=== PATIENT | female | born 1950 | race Hispanic/Latino ===

== ENCOUNTER → 2018-07-01 | Outpatient (CLI) | payer OTHER | END | disposition home or self-care (01) | LOC: RAH 08:10 | PROVIDERS: ATTEND Internal Medicine Gastroenterology | DX: K21.9 Gastro-esophageal reflux disease without esophagitis (principal); R13.10 Dysphagia, unspecified; Z90.49 Acquired absence of other specified parts of digestive tract | CPT/HCPCS: 74240 ==

== ENCOUNTER 2018-08-30 05:43 | Day surgery (SDC) | payer OTHER ==
[~2018-08-30] VITALS: Ht 162.6 cm; Wt 135.6 kg
[2018-08-30 07:10] VITALS: BP 145/85
[2018-08-30] MEDS ORDERED: SODIUM CHLORIDE 0.9% 1000ML 1,000 ML IV ONE (07:27)
[2018-08-30 08:49] VITALS: BP 118/55
[2018-08-30 08:55] VITALS: BP 124/61
[2018-08-30 09:00] VITALS: BP 114/70
[2018-08-30 09:05] VITALS: BP 119/64
--- NOTE | 2018-08-30 09:35 | NUR ---
PT TOLERATED PROCEDURE WELL, NO C/O THROAT PAIN, ABLE TO TOLERATE FLUIDS IN GI RECOVERY. POST CARE INSTRUCTIONS GIVEN TO PT AND FAMILY FRIEND, BOTH VERBALIZED UNDERSTANDING. PT DRESSED WITH HELP FROM FRIEND, PT PLACED IN A WHEELCHAIR DRIVEN HOME BY FRIEND.
== END 2018-08-30 09:35 | disposition home or self-care (01) ==
LOC: DAH 05:43 → ENDO 05:43
PROVIDERS: ATTEND Internal Medicine Gastroenterology
DX: K29.50 Unspecified chronic gastritis without bleeding (principal); Z98.84 Bariatric surgery status; Z98.890 Other specified postprocedural states; M81.0 Age-related osteoporosis without current pathological fracture; E78.5 Hyperlipidemia, unspecified; I10 Essential (primary) hypertension; G25.81 Restless legs syndrome; F32.9 Major depressive disorder, single episode, unspecified; K21.9 Gastro-esophageal reflux disease without esophagitis; Z86.010 Personal history of colon polyps; G62.9 Polyneuropathy, unspecified; Z79.899 Other long term (current) drug therapy; Z68.42 Body mass index [BMI] 45.0-49.9, adult; Z80.0 Family history of malignant neoplasm of digestive organs
CPT/HCPCS: 43239; 43249; 88305; 93005; A4606; J7030; 43251

== ENCOUNTER 2018-11-28 20:23 | Inpatient (IN) | payer OTHER ==
[~2018-11-28] VITALS: Ht 170.2 cm; Wt 135.3 kg
[2018-11-28 21:59] LABS: BASOPHILS % (AUTO) 0.3 % (0.0-5.0); HEMATOCRIT 38.1 % (36-48); LYMPHOCYTES % (AUTO) 6.4 % (21.0-51.0); MEAN CORPUSCULAR HEMOGLOBIN 27.6 pg (27.0-33.0); MEAN CORPUSCULAR HGB CONC 32.6 g/dL (32.0-36.0); MEAN CORPUSCULAR VOLUME 84.7 fL (79-99); MONOCYTES % (AUTO) 6.3 % (3.0-13.0); PLATELET COUNT (AUTO) 236 K/uL (130-400); RED CELL DISTRIBUTION WIDTH 14.4 % (11.0-15.5); WHITE BLOOD COUNT (AUTO) 19.2 K/uL (4.8-10.8)
[2018-11-28 22:19] LABS: CREATININE 1.6 mg/dL (0.5-1.5); POTASSIUM 3.8 mmol/L (3.5-5.1)
[2018-11-28] MEDS ORDERED: CLINDAMYCIN HCL 150 MG CAP ONE (22:51)
[2018-11-28] MEDS ORDERED: MEROPENEM 500 MG VIAL ONE (23:04)
[2018-11-29] MEDS ORDERED: MORPHINE SULFATE 4 MG/1ML SYG IV PRN (00:45)
[2018-11-29] MEDS ORDERED: ONDANSETRON HCL 4 MG/2 ML VIAL IV PRN (00:45)
[2018-11-29 00:50] VITALS: BP 149/67
[2018-11-29] MEDS: CLINDAMYCIN 600 MG/D5% WATER 50 ML IV SCH ×3 (01:00→17:49)
--- NOTE | 2018-11-29 01:15 | NUR ---
CT Angio Informed ELVIN Rausch Np who is front desk team member for the hospitalist regarding CT angio can not be done because of patient elevated Bun and Creatine. He said he will recheck labs in am and hydrate patient with NS at 100.
[2018-11-29] MEDS: SODIUM CHLORIDE 0.9% 1000ML 1,000 ML IV SCH ×3 (01:26→20:12)
[2018-11-29] MEDS ORDERED: DULO60CA63 PO (01:43)
[2018-11-29] MEDS ORDERED: LOSA1TAB2 PO (01:43)
[2018-11-29] MEDS ORDERED: DILT360C32 PO (01:43)
[2018-11-29] MEDS ORDERED: APIX5TAB PO (01:43)
[2018-11-29] MEDS ORDERED: LATA7.5D OP (01:43)
[2018-11-29] MEDS ORDERED: CHOL500011 PO (01:43)
[2018-11-29] MEDS ORDERED: GLUC-145 PO (01:43)
[2018-11-29] MEDS ORDERED: SIMV40TA59 PO (01:43)
[2018-11-29] MEDS ORDERED: LEVO200 PO (01:43)
[2018-11-29] MEDS ORDERED: OMEP40CA37 PO (01:43)
[2018-11-29] MEDS ORDERED: FESO8TAB PO (01:43)
--- NOTE | 2018-11-29 03:01 | NUR ---
Lactic Acid Inform ELVIN Rausch regarding patients Lactic Acid of 2.9. No orders were given
[2018-11-29 03:37] VITALS: BP 126/54
[2018-11-29] MEDS ORDERED: KETOROLAC TROMETHAMINE 15MG/ML IV PRN (04:00)
[2018-11-29] MEDS: LEVOTHYROXINE 75 MCG TABLET PO SCH (06:26)
[2018-11-29] MEDS: LEVOTHYROXINE 100 MCG TABLET PO SCH (06:26)
[2018-11-29 06:47] LABS: ALBUMIN 2.9 g/dL (3.5-5.0); BILIRUBIN,TOTAL 0.6 mg/dL (0.2-1.0); CREATININE 1.4 mg/dL (0.5-1.5); POTASSIUM 3.9 mmol/L (3.5-5.1); TOTAL PROTEIN, SERUM 7.2 g/dL (6.0-8.3)
[2018-11-29 07:30] VITALS: BP 136/70
[2018-11-29] MEDS ORDERED: ENOXAPARIN SODIUM 40 MG/0.4 ML SYRINGE SQ SCH (09:00)
[2018-11-29] MEDS: DILTIAZEM HCL 180 MG CAP.SR.24H PO SCH (09:25)
[2018-11-29] MEDS: APIXABAN 5 MG TABLET PO SCH ×2 (09:26→20:09)
[2018-11-29] MEDS: LOSARTAN 50 MG TABLET PO SCH (09:26)
[2018-11-29] MEDS: HYDROCHLOROTHIAZIDE 25 MG TABLET PO SCH (09:26)
[2018-11-29] MEDS: DULOXETINE HCL 30 MG CAP PO SCH ×2 (09:26→20:09)
[2018-11-29] MEDS: FAMOTIDINE 20MG TAB 20 MG TAB PO SCH (09:27)
[2018-11-29] MEDS: FESOTERODINE FUMARATE 8 MG PO SCH (09:28)
[2018-11-29 11:00] VITALS: BP 118/74
[2018-11-29] MEDS ORDERED: IOHEXOL-350 75 ML VIAL IV ONE (13:27)
[2018-11-29 16:00] VITALS: BP 128/66
[2018-11-29] MEDS: GLUCOSAMINE-CHONDROITIN PO SCH (17:50)
[2018-11-29 19:00] VITALS: BP 111/66
--- NOTE | 2018-11-29 19:37 | NUR ---
cm note lives alone.independent with adls Walker at times. Drives self. Dc plan is back home. provided [facility] info referral to [facility] provider assists. Addendum: 11/29/18 at 1938 by TATIANNA KERR CM Amended: Links added.
[2018-11-29] MEDS: SIMVASTATIN 20 MG TABLET PO SCH (20:09)
[2018-11-29] MEDS: LATANOPROST 2.5 ML DROPS OP SCH (20:15)
[2018-11-30 00:15] VITALS: BP 118/64
[2018-11-30] MEDS: CLINDAMYCIN 600 MG/D5% WATER 50 ML IV SCH ×3 (01:22→16:39)
[2018-11-30 04:12] VITALS: BP 123/56
[2018-11-30 05:22] LABS: BASOPHILS % (AUTO) 0.3 % (0.0-5.0); EOSINOPHILS % (AUTO) 1.8 % (0.0-8.0); HEMATOCRIT 33.9 % (36-48); LYMPHOCYTES % (AUTO) 13.6 % (21.0-51.0); MEAN CORPUSCULAR HEMOGLOBIN 27.8 pg (27.0-33.0); MEAN CORPUSCULAR VOLUME 84.1 fL (79-99); MONOCYTES % (AUTO) 6.4 % (3.0-13.0); NEUTROPHILS % (AUTO) 77.9 % (40.0-77.0); PLATELET COUNT (AUTO) 201 K/uL (130-400); RED BLOOD CELL COUNT(AUTO) 4.03 MIL/uL (4.00-5.50); WHITE BLOOD COUNT (AUTO) 10.5 K/uL (4.8-10.8)
[2018-11-30 05:41] LABS: CREATININE 1.1 mg/dL (0.5-1.5); POTASSIUM 3.8 mmol/L (3.5-5.1)
[2018-11-30] MEDS: LEVOTHYROXINE 100 MCG TABLET PO SCH (05:47)
[2018-11-30] MEDS: LEVOTHYROXINE 75 MCG TABLET PO SCH (05:47)
[2018-11-30] MEDS: SODIUM CHLORIDE 0.9% 1000ML 1,000 ML IV SCH ×2 (05:51→20:12)
[2018-11-30 08:00] VITALS: BP 131/61
[2018-11-30] MEDS: LOSARTAN 50 MG TABLET PO SCH (08:40)
[2018-11-30] MEDS: HYDROCHLOROTHIAZIDE 25 MG TABLET PO SCH (08:41)
[2018-11-30] MEDS: DULOXETINE HCL 30 MG CAP PO SCH ×2 (08:41→20:08)
[2018-11-30] MEDS: FAMOTIDINE 20MG TAB 20 MG TAB PO SCH (08:41)
[2018-11-30] MEDS: APIXABAN 5 MG TABLET PO SCH ×2 (08:41→20:08)
[2018-11-30] MEDS: DILTIAZEM HCL 180 MG CAP.SR.24H PO SCH (08:41)
[2018-11-30] MEDS: FESOTERODINE FUMARATE 8 MG PO SCH (08:42)
[2018-11-30] MEDS ORDERED: ERGOCALCIFEROL (VITAMIN D2) 50,000 UNIT CAPSULE PO SCH (09:00)
[2018-11-30 11:52] VITALS: BP 114/57
[2018-11-30 16:00] VITALS: BP 122/84
[2018-11-30] MEDS: GLUCOSAMINE-CHONDROITIN PO SCH (16:39)
[2018-11-30] MEDS ORDERED: ACETAMINOPHEN 325 MG TAB PO PRN (18:00)
[2018-11-30 19:12] VITALS: BP 122/56
--- NOTE | 2018-11-30 20:00 | NUR ---
MEDS SHIFT ASSESSMENT DONE, PLEASE REFER TO CHART.PT COMPLAINTS OF PAINS TO LLE GOING UP ABOVE HER KNEES. DUE MEDS ADMINISTERED AND TORADOL FOR PAINS GIVEN, PT TOLERATED MEDS WELL. KEPT RESTED AND COMFROTABLE IN BED. CALL LIGHT WITHIN REACH. WILL RE-ASSESS PT. Addendum: 11/30/18 at 2244 by JOSEMANUEL LOWE RN RN Amended: Links added.
[2018-11-30] MEDS: SIMVASTATIN 20 MG TABLET PO SCH (20:08)
[2018-11-30] MEDS: LATANOPROST 2.5 ML DROPS OP SCH (21:47)
[2018-12-01 00:05] VITALS: BP 111/71
[2018-12-01] MEDS: CLINDAMYCIN 600 MG/D5% WATER 50 ML IV SCH ×3 (00:41→16:55)
--- NOTE | 2018-12-01 01:56 | NUR ---
ROUNDS PT FAIRLY ASLEEP WITH RESPIRATIONS EVEN AND UNLABORED. NO NOTED DISTRESS. KEPT UNDISTURBED FOR NOW. WILL CONTINUE TO MONITOR.
[2018-12-01] MEDS: SODIUM CHLORIDE 0.9% 1000ML 1,000 ML IV SCH ×3 (02:00→22:45)
--- NOTE | 2018-12-01 04:00 | NUR ---
SHOWER PT IS ALREADY AWAKE AND REQUESTING A SHOWER. SALINE LOCKED FOR NOW. PCP IN TO ASSIST PT.
[2018-12-01 04:08] VITALS: BP 120/68
[2018-12-01] MEDS: LEVOTHYROXINE 75 MCG TABLET PO SCH (05:49)
[2018-12-01] MEDS: LEVOTHYROXINE 100 MCG TABLET PO SCH (05:50)
--- NOTE | 2018-12-01 05:50 | NUR ---
MEDS PT AWAKENED FOR DUE MEDS, TOLERATED WELL. JOB DEVELOPMENT SPECIALIST IN TO DRAW BLOOD. KEPT RESTED IN BED. ENCOURAGED TO GO BACK TO SLEEP. FOR MORE CARE.
[2018-12-01 06:31] LABS: CREATININE 1.2 mg/dL (0.5-1.5); POTASSIUM 3.7 mmol/L (3.5-5.1)
[2018-12-01 08:00] VITALS: BP 105/65
--- NOTE | 2018-12-01 08:00 | NUR ---
AM SHIFT ASSESSMENT. WHEEZES BILATERAL. STATES HAS BEEN SOMEWHAT SOB. WILL CALL TO NOTIFY
[2018-12-01] MEDS: LOSARTAN 50 MG TABLET PO SCH (08:24)
[2018-12-01] MEDS: HYDROCHLOROTHIAZIDE 25 MG TABLET PO SCH (08:24)
[2018-12-01] MEDS: DILTIAZEM HCL 180 MG CAP.SR.24H PO SCH (08:25)
[2018-12-01] MEDS: FAMOTIDINE 20MG TAB 20 MG TAB PO SCH (08:25)
[2018-12-01] MEDS: DULOXETINE HCL 30 MG CAP PO SCH ×2 (08:25→20:59)
[2018-12-01] MEDS: APIXABAN 5 MG TABLET PO SCH ×2 (08:26→20:59)
[2018-12-01] MEDS: FESOTERODINE FUMARATE 8 MG PO SCH (08:28)
[2018-12-01 11:48] VITALS: BP 131/65
[2018-12-01 16:00] VITALS: BP 108/54
[2018-12-01] MEDS: GLUCOSAMINE-CHONDROITIN PO SCH (16:55)
--- NOTE | 2018-12-01 17:00 | NUR ---
DR. BENNETT ADDRESSED C/O OF WHEEZING.
[2018-12-01 19:12] VITALS: BP 131/55
[2018-12-01] MEDS: SIMVASTATIN 20 MG TABLET PO SCH (20:59)
[2018-12-01] MEDS: LATANOPROST 2.5 ML DROPS OP SCH (21:00)
[2018-12-01] MEDS: IPRATROPIUM 0.5 MG/2.5 ML INH IH SCH (21:56)
[2018-12-02] VITALS (7 sets, daily range): BP systolic 128–148; BP diastolic 60–79
[2018-12-02] MEDS: CLINDAMYCIN 600 MG/D5% WATER 50 ML IV SCH ×3 (01:40→17:12)
[2018-12-02] MEDS: IPRATROPIUM 0.5 MG/2.5 ML INH IH SCH ×6 (01:42→21:15)
--- NOTE | 2018-12-02 05:12 | NUR ---
STATUS Pt had an uneventful night.Voiced no complaints of pain or discomfort.
[2018-12-02] MEDS: LEVOTHYROXINE 100 MCG TABLET PO SCH (06:09)
[2018-12-02] MEDS: LEVOTHYROXINE 75 MCG TABLET PO SCH (06:09)
[2018-12-02] MEDS: FESOTERODINE FUMARATE 8 MG PO SCH (09:00)
[2018-12-02] MEDS ORDERED: FUROSEMIDE 10 MG/ML 2ML VIAL IV SCH (09:00)
[2018-12-02] MEDS: DILTIAZEM HCL 180 MG CAP.SR.24H PO SCH (10:29)
[2018-12-02] MEDS: HYDROCHLOROTHIAZIDE 25 MG TABLET PO SCH (10:29)
[2018-12-02] MEDS: DULOXETINE HCL 30 MG CAP PO SCH ×2 (10:30→20:30)
[2018-12-02] MEDS: LOSARTAN 50 MG TABLET PO SCH (10:30)
[2018-12-02] MEDS: APIXABAN 5 MG TABLET PO SCH ×2 (10:30→20:30)
[2018-12-02] MEDS: FAMOTIDINE 20MG TAB 20 MG TAB PO SCH (10:30)
[2018-12-02] MEDS: GLUCOSAMINE-CHONDROITIN PO SCH (17:12)
[2018-12-02] MEDS: SIMVASTATIN 20 MG TABLET PO SCH (20:30)
[2018-12-02] MEDS: LATANOPROST 2.5 ML DROPS OP SCH (20:31)
--- NOTE | 2018-12-02 21:00 | NUR ---
PIV New Iv site started to her left foreamr per Scott Arguello Rn.
[2018-12-03] MEDS: IPRATROPIUM 0.5 MG/2.5 ML INH IH SCH ×4 (01:08→13:36)
[2018-12-03] MEDS: CLINDAMYCIN 600 MG/D5% WATER 50 ML IV SCH ×2 (01:48→08:52)
[2018-12-03 03:00] VITALS: BP 132/63
--- NOTE | 2018-12-03 04:51 | NUR ---
STATUS Pt slept well,voiced no complaints of pain or discomfort.
[2018-12-03 05:23] LABS: BASOPHILS % (AUTO) 0.6 % (0.0-5.0); EOSINOPHILS % (AUTO) 4.3 % (0.0-8.0); HEMATOCRIT 32.2 % (36-48); LYMPHOCYTES % (AUTO) 15.9 % (21.0-51.0); MEAN CORPUSCULAR HEMOGLOBIN 26.8 pg (27.0-33.0); MEAN CORPUSCULAR HGB CONC 32.3 g/dL (32.0-36.0); MEAN CORPUSCULAR VOLUME 83.1 fL (79-99); MONOCYTES % (AUTO) 9.9 % (3.0-13.0); NEUTROPHILS % (AUTO) 69.3 % (40.0-77.0); PLATELET COUNT (AUTO) 340 K/uL (130-400); RED BLOOD CELL COUNT(AUTO) 3.88 MIL/uL (4.00-5.50); RED CELL DISTRIBUTION WIDTH 14.4 % (11.0-15.5); WHITE BLOOD COUNT (AUTO) 8.1 K/uL (4.8-10.8)
[2018-12-03 05:32] LABS: CREATININE 1.1 mg/dL (0.5-1.5); POTASSIUM 4.4 mmol/L (3.5-5.1)
[2018-12-03] MEDS: LEVOTHYROXINE 100 MCG TABLET PO SCH (06:25)
[2018-12-03] MEDS: LEVOTHYROXINE 75 MCG TABLET PO SCH (06:25)
[2018-12-03 08:00] VITALS: BP 127/71
[2018-12-03] MEDS: DULOXETINE HCL 30 MG CAP PO SCH (08:44)
[2018-12-03] MEDS: APIXABAN 5 MG TABLET PO SCH (08:44)
[2018-12-03] MEDS: HYDROCHLOROTHIAZIDE 25 MG TABLET PO SCH (08:45)
[2018-12-03] MEDS: LOSARTAN 50 MG TABLET PO SCH (08:45)
[2018-12-03] MEDS: FAMOTIDINE 20MG TAB 20 MG TAB PO SCH (08:45)
[2018-12-03] MEDS: FESOTERODINE FUMARATE 8 MG PO SCH (08:46)
[2018-12-03] MEDS: DILTIAZEM HCL 180 MG CAP.SR.24H PO SCH (08:46)
[2018-12-03] MEDS ORDERED: CLIN300C9 PO (08:48)
[2018-12-03 12:00] VITALS: BP 134/87
--- NOTE | 2018-12-03 15:00 | NUR ---
DISCHARGE INSTRUCTIONS GIVEN AND ALL QUESTIONS ANSWERED .. IV DISCONTINUED WITH INNER CANNULA INTACT. DISCHARGE PRESCRIPTIONS GIVEN FOR PATIENT TO LEASE PICKER MEDICATIONS. PATIENT AWAITING RIDE HOME.
== END 2018-12-03 15:40 | disposition home or self-care (01) | DRG 603 ==
LOC: EDH 20:23 → EDHIP 23:35 → 3BH 11-29 00:17
PROVIDERS: ADMIT Internal Medicine; ATTEND Internal Medicine
DX: L03.116 Cellulitis of left lower limb (principal); N17.9 Acute kidney failure, unspecified; E87.1 Hypo-osmolality and hyponatremia; Z68.42 Body mass index [BMI] 45.0-49.9, adult; E66.01 Morbid (severe) obesity due to excess calories; I10 Essential (primary) hypertension; I48.2 Chronic atrial fibrillation; E78.5 Hyperlipidemia, unspecified; Z90.49 Acquired absence of other specified parts of digestive tract; Z88.1 Allergy status to other antibiotic agents; Z88.5 Allergy status to narcotic agent; Z88.0 Allergy status to penicillin; Z88.2 Allergy status to sulfonamides; Z88.8 Allergy status to other drugs, medicaments and biological substances; Z98.84 Bariatric surgery status
CPT/HCPCS: 36415; 71275; 80048; 80053; 83605; 85025; 85378; 87040; 93971; 94640; 94664; G0378; J1885; J1940; J2185; J3490; J7030; Q9967

== ENCOUNTER 2019-07-01 07:11 | Day surgery (SDC) | payer OTHER ==
[~2019-07-01] VITALS: Ht 167.6 cm; Wt 136.1 kg
[~2019-07-01 07:11] MED LIST: APIX5TAB PO; CALC-724 PO; CHOL500011 PO; DILT360C32 PO; DULO60CA64 PO; FESO8TAB PO; FISH PO; FURO-152 PO; GLUC-145 PO; IRON; LATA7.5D OP; LEVO200 PO; LEVO200T10 PO; LOSA1TAB2 PO; METO25TA6 PO; MULTIVITAMIN; OMEP40CA13 PO; SIMV20TA2 PO; SIMV40TA59 PO; SODIUM CHLORIDE 0.9% 1000ML 1,000 ML IV ONE; TUMERIC PO; TYLENOL PO; VITAMIN D3 PO
[2019-07-01 09:09] VITALS: BP 154/90
[2019-07-01] MEDS ORDERED: MIDAZOLAM HCL 1 MG/ML 2ML VIAL ONE (09:43)
[2019-07-01] MEDS ORDERED: PROPOFOL 10 MG/ML 20ML VIAL IV ONE (09:53)
[2019-07-01 10:10] VITALS: BP 124/69
== END 2019-07-01 10:48 | disposition home or self-care (01) ==
LOC: DAH 07:11 → ENDO 07:11
PROVIDERS: ATTEND Internal Medicine
DX: Z12.11 Encounter for screening for malignant neoplasm of colon (principal); D12.2 Benign neoplasm of ascending colon; K64.0 First degree hemorrhoids; K57.30 Diverticulosis of large intestine without perforation or abscess without bleeding; M81.0 Age-related osteoporosis without current pathological fracture; E78.5 Hyperlipidemia, unspecified; I10 Essential (primary) hypertension; F32.9 Major depressive disorder, single episode, unspecified; K21.9 Gastro-esophageal reflux disease without esophagitis; G47.33 Obstructive sleep apnea (adult) (pediatric); I48.91 Unspecified atrial fibrillation; E66.9 Obesity, unspecified; Z68.42 Body mass index [BMI] 45.0-49.9, adult; Z88.1 Allergy status to other antibiotic agents; Z88.0 Allergy status to penicillin; Z88.2 Allergy status to sulfonamides; Z88.8 Allergy status to other drugs, medicaments and biological substances; Z79.899 Other long term (current) drug therapy; Z79.01 Long term (current) use of anticoagulants; Z86.010 Personal history of colon polyps; Z90.49 Acquired absence of other specified parts of digestive tract; Z98.890 Other specified postprocedural states; Z80.0 Family history of malignant neoplasm of digestive organs
CPT/HCPCS: 45385; 88305; 93005; A4215; A4221; A4222; A4223; A4606; A4620; A4663; J2250; J2704; J7030